=== PATIENT | male | born 1950 | race Caucasian/White ===

== ENCOUNTER 2017-06-03 15:43 | Emergency (ER) | payer BC ==
[~2017-06-03] VITALS: Ht 177.8 cm; Wt 85.0 kg
[~2017-06-03 15:43] MED LIST: ABX; FLUT1DIS23 IH; VASOTEC; VERAPAMIL
[2017-06-03 15:46] VITALS: Ht 177.8 cm; Wt 85.0 kg
[2017-06-03 17:05] LABS: ADD UMIC YES; UR ASCORBIC ACID NEGATIVE (NEGATIVE); UR BILIRUBIN (Dip) NEGATIVE (NEGATIVE); UR BLOOD (Dip) 3+ mg/dL (NEGATIVE); UR CLARITY CLOUDY (CLEAR); UR COLOR AMBER (YELLOW); UR GLUCOSE (Dip) NEGATIVE (NEGATIVE); UR KETONES (Dip) 1+ mg/dL (NEGATIVE); UR LEUKOCYTE ESTERASE (Dip) 3+ Leu/ul (NEGATIVE); UR MUCUS MANY /HPF (NONE SEEN); UR NITRITE (Dip) NEGATIVE (NEGATIVE); UR RBC 96 /HPF (0-5); UR SPECIFIC GRAVITY (Dip) 1.029 (1.003-1.030); UR TOTAL PROTEIN (Dip) 2+ mg/dl (NEGATIVE); UR UROBILINOGEN (Dip) 1+ mg/dL (NEGATIVE)
[2017-06-03] MEDS ORDERED: SULF1TAB31 PO (17:10)
--- NOTE | 2017-06-03 17:16 | ERD ---
ER Documentation Chief Complaint Date/Time DATE: 06/03/17 TIME: 17:12 Chief Complaint Complains of blood in the urine HPI This patient is a pleasant 66-year-old male who presents with hematuria and increased urinary frequency that he has had since . He states he has no pain. He has no dysuria or abdominal pain. No fever nausea or vomiting. He does state he feels an occasional fullness in his bladder. He has had a urinary tract infection in the past. ROS All systems reviewed and are negative except as per history of present illness. Medications Home Meds Active Scripts Sulfamethoxazole/Trimethoprim* (Bactrim Ds* Tablet) 1 Each Tablet, 1 TAB PO BID , #14 TAB Prov:DINA DAS PA-C 06/03/17 Reported Medications Fluticasone/Salmeterol (Advair 250-50 Diskus) 1 Disk W/Dev Disk.w.dev, 1 DISK IH BID 09/22/11 [Abx] No Conflict Check 09/22/11 [Verapamil] No Conflict Check 09/22/11 [Vasotec] No Conflict Check 09/22/11 Allergies Allergies: Coded Allergies: acyclovir (Verified Allergy, Intermediate, 06/03/17) ciprofloxacin (Verified Allergy, Intermediate, 06/03/17) enalaprilat (Verified Allergy, Intermediate, 06/03/17) Penicillins (Verified Allergy, Mild, 06/03/17) PMhx/Soc History of Surgery: Yes (1987 vasectomy) Anesthesia Reaction: No Hx Neurological Disorder: No Hx Respiratory Disorders: Yes (emphysema) Hx Cardiac Disorders: Yes (htn) Hx Psychiatric Problems: No Hx Miscellaneous Medical Probl: No Hx Alcohol Use: Yes (2 weeks ago) Hx Substance Use: Yes (marijuana) Hx Tobacco Use: Yes Smoking Status: Current every day smoker FmHx Family History: No diabetes Physical Exam Vitals Vital Signs Date Time Temp Pulse Resp B/P Pulse Ox O2 Delivery O2 Flow Rate FiO2 06/03/17 15:46 98.3 100 20 147/98 96 Physical Exam INITIAL VITAL SIGNS: Reviewed by me GENERAL: Awake, alert and oriented x 4, well appearing, nontoxic, speaking in full sentences. No acute distress HEAD: Atraumatic RESPIRATORY: Clear to auscultation bilaterally. Symmetric chest wall rise. No wheezing or rales. No accessory muscle use. CV: Regular rate and rhythm. No murmurs, rubs, or gallops. ABDOMEN: Soft, non-distended. Nontender. Negative [place]. Negative [place] point tenderness. No CVA tenderness bilaterally. No guarding. No rebound. : Deffered. Results 24 hrs Laboratory Tests Test 06/03/17 16:47 Urine Color CARMELITA Urine Clarity CLOUDY Urine pH 5.0 Urine Specific [place] 1.029 Urine Ketones 1+mg/dL Urine Nitrite NEGATIVEmg/dL Urine Bilirubin NEGATIVEmg/dL Urine Urobilinogen 1+mg/dL Urine Leukocyte Esterase 3+Jaqui/ul Urine Microscopic RBC 96/HPF Urine Microscopic WBC > 182/HPF Urine Mucus MANY/HPF Urine Hemoglobin 3+mg/dL Urine Glucose NEGATIVEmg/dL Urine Total Protein 2+mg/dl Procedures/MDM This patient is a pleasant 66-year-old male who presents with hematuria and urinary frequency. He has no other complaints. No abdominal pain. No fever. No nausea or vomiting. He has had urinary tract infection in the past. Urinalysis results here do show evidence of urinary tract infection will be treated with Bactrim which he states he has had good relief with in the past and his urine was sent for culture. Patient counseled regarding my diagnostic impression and care plan. Prior to discharge all questions answered. Pt agrees with treatment plan and understands strict return precautions. Pt is instructed to follow up with primary care provider within 24-48 hours. Precautionary instructions provided including instructions to return to the ER if not improving or for any worsening or changing symptoms or concerns. Departure Diagnosis: Primary Impression: Cystitis Condition: Stable Patient Instructions: Cystitis Additional Instructions: Call your primary care doctor TOMORROW for an appointment during the next 1-2 days.See the doctor sooner or return here if your condition worsens before your appointment time. DINA DAS PA-C Jun 03, 2017 17:16
== END 2017-06-03 17:36 | disposition home or self-care (01) ==
LOC: FTE 15:43
DX: N30.91 Cystitis, unspecified with hematuria (principal); I10 Essential (primary) hypertension; F17.210 Nicotine dependence, cigarettes, uncomplicated
CPT/HCPCS: 81001; 87086; 99283